=== PATIENT | male | born 1980 | race Caucasian/White ===

== ENCOUNTER 2025-07-19 16:53 | Emergency (ER) | payer OTHER, SELFPAY ==
[2025-07-19] VITALS (8 sets, daily range): BP systolic 125–161; BP diastolic 77–105; PULSE 78–93; RESP 16–19; TEMP 36.6–37; O2SAT 97–99; BMI 39.9
--- NOTE | 2025-07-19 17:28 | EKG12_ITS ---
Test Reason : CP Blood Pressure : */* mmHG Vent. Rate : 81 BPM Atrial Rate : 81 BPM P-R Int : 144 ms QRS Dur : 90 ms QT Int : 362 ms P-R-T Axes : 50 18 19 degrees QTcB Int : 420 ms Normal sinus rhythm Normal ECG Confirmed by SALAS RIZO, CHRISTINA ([id number]), supervising film or videotape editor JAN DEAL ([id number]) on 07/20/2025 10:47:42 AM Referred By: YUSUF Confirmed By: CHRISTINA MARINA MD
[2025-07-19 17:49] LABS: Hematocrit 45.9 % (40-54); Hemoglobin 16.4 g/dL (13.0-16.5); Immature Granulocytes Count 0.020 X10^3/uL (0.0-0.0); Mean Corp Hgb Conc 35.7 g/dL (32-36); Mean Corpuscular Volume 89.6 fL (80-94); Mean Platelet Vol. 11.2 fl (6.2-12.0); NRBC Flagged by Analyzer 0 % (0-5); Platelet Count 222 K/mm3 (150-450); RBC Distribution Width CV 11.9 % (11.6-14.6); RBC Distribution Width SD 38.9 fl (35.1-43.9); Red Blood Count 5.12 M/mm3 (4.6-6.2); White Blood Count 8.7 K/mm3 (4.4-11.0)
--- NOTE | 2025-07-19 17:50 | RAD_ITS ---
PROCEDURE: CHEST 1 VIEW (PORTABLE) 07/19/2025 REASON FOR EXAM: CHEST PAIN TECHNIQUE: Frontal view of the chest. COMPARISON: None. FINDINGS: Lungs/Pleura: Clear. No pneumothorax or sizable pleural effusion. Heart/Mediastinum: Borderline enlarged. Bones/Soft tissues: Degenerative changes of the spine. RAD/Chest 1 View (Portable) IMPRESSION: Borderline cardiomegaly. No acute pulmonary disease. Reading Location: [facility]
[2025-07-19 18:22] LABS: Anion Gap 14 (5-15); BUN 13 mg/dL (4-19); BUN/Creat Ratio 16.7 RATIO (10-20); Calcium,Total 10.0 mg/dL (7.6-11.0); Carbon Dioxide 22.2 mmol/L (21.0-32.0); Chloride 103 mmol/L (98-108); Estimated Creatinine Clearance 183.38 ml/min (50-250); Glucose 118 mg/dL (70-99); Potassium 4.0 mmol/L (3.3-5.1); Troponin T High Sensitivity < 6 ng/L (<=22)
[2025-07-19 20:28] LABS: Troponin T High Sens 2 HR < 6 ng/L (<=22)
--- NOTE | 2025-07-19 23:31 | ED.VIS.CHEST ---
HPI History of Present Illness Chief Complaint: Chest Pain Detail of Chief Complaint: Chest discomfort Informant: patient Onset/Context/Timing Onset: Today (Today did not resolve with antiacid.) and Yesterday (Yesterday resolved with antiacid) Activity at onset: rest Timing: Continuous Quality: Positive for Aching, Burning, Indigestion and Pressure Location: Left Parasternal and - (Subxiphoid) Current Severity: Moderate Maximum Severity: Severe Worsened By: Nothing Relieved By: Nothing Associated Symptoms: Positive for Nausea and Dyspnea; Negative for Vomiting, Diaphoresis, Cough, Fever, Lightheadedness, Acid Reflux or Palpitations Narrative Narrative: Patient is a 44-year-old male. He has history of GERD on Protonix and Pepcid. Takes 140 mg tablet of Protonix in the morning and either 20 or 40 mg Pepcid tablet at night. He presents because he got no relief with Maalox and his persistent pain. He has no history of hypertension. He has no history of diabetes or hypercholesterolemia. He has no known cardiac disease. Denies black or maroon-colored stool. He does have history of obstructive sleep apnea. Recent Illness/Hospitalization: No CVD Risk Factors: Negative for Hypertension, Diabetes, Hypercholesterolemia, Family History 1' </=55 or Smoking PE Risk Factors: Negative for Recent Travel/Surgery, Recent Immobilization, Prior DVT or PE, Cancer or OCP + Smoking + >/=35 TAD Risk Factors: Positive for Hypertension; Negative for Marfan's Syndrome or Family History [facility] Medical History Anxiety GERD (gastroesophageal reflux disease) Home Medications ?Medication ?Instructions ?Recorded ?Last Taken ?Type esomeprazole magnesium 40 mg 40 mg PO DAILY 11/11/14 Unknown History capsule,delayed release (Nexium) Allergy/AdvReac Type Severity Reaction Status Date / Time morphine AdvReac Vomiting Verified 07/19/25 16:55 Social History Smoking Status: Former smoker ROS ROS ED Constitutional Constitutional ED: Denies chills or fever(s) Eyes Eyes: Reports none ENT ENT ED: Denies ear pain or rhinorrhea Cardiovascular Cardiovascular: Reports as per HPI and chest pain Respiratory/Chest Respiratory/Chest: Reports dyspnea; Denies cough or dyspnea on exertion Gastrointestinal Gastrointestinal: Reports nausea; Denies abdominal pain, diarrhea or vomiting Musculoskeletal Musculoskeletal: Denies arthralgias, back pain or myalgias Integumentary Denies rash Endocrine Endocrinology: Denies cold intolerance or heat intolerance Hematologic/Lymphatic Hematologic/Lymphatic: Denies easy bleeding or easy bruising EXAM Physical Exam Const Vital Signs: 07/19/25 16:54 07/19/25 17:20 07/19/25 17:28 Temperature 98.6 F Temperature Source Oral Pulse Rate 93 Respiratory Rate 18 Respiratory Effort Normal Non-Labored Blood Pressure 161/88 H Blood Pressure Mean 112 Pulse Ox 98 Oxygen Delivery Method Room Air Room Air 07/19/25 17:45 07/19/25 19:00 07/19/25 20:00 Temperature Temperature Source Pulse Rate 84 88 81 Respiratory Rate 16 18 16 Respiratory Effort Blood Pressure 138/83 H 132/80 H 150/84 H Blood Pressure Mean 101 97 106 Pulse Ox 98 98 99 Oxygen Delivery Method Room Air Room Air Room Air 07/19/25 21:00 07/19/25 22:00 07/19/25 23:00 Temperature Temperature Source Pulse Rate 78 88 86 Respiratory Rate 17 19 H 18 Respiratory Effort Blood Pressure 126/77 H 125/78 H 128/105 H Blood Pressure Mean 93 93 112 Pulse Ox 98 97 97 Oxygen Delivery Method Room Air Room Air Room Air Positive well nourished and well developed Constitutional Narrative: BMI is 39.9 General Appearance ED: well developed and NAD; Negative for pallor HEENT Reports moist mucous membranes normocephalic and atraumatic Eyes PERRL and EOMs intact bilaterally General Eye ED: Negative for pale conjunctiva or scleral icterus Neck no lymphadenopathy, supple and no JVD Resp normal respiratory effort and clear to auscultation bilaterally Cardio regular rate, regular rhythm, S1 normal heart sound, S2 normal heart sound and no murmurs Peripheral Pulses: pulses 2+ throughout GI normal to inspection, nondistended, normoactive bowel sounds, soft to palpation, non-tender, non-distended and no masses; Negative for hepatosplenomegaly Back/Spine no CVA tenderness Extremity normal to inspection General Extremety ED: Negative for edema or pulses abnormal General Extremity: Negative for edema or pulses abnormal Neuro oriented x3 and CN's II-XII intact bilaterally Sensorium / Orientation: awake and alert Psych mental status grossly normal Skin no rashes or lesions noted and no wounds General Skin Exam: Negative for jaundice or pallor MDM MDM MDM Narrative Medical decision making narrative: Differential diagnosis esophagitis, gastritis, peptic ulcer disease, reflux, hiatal hernia, coronary disease, biliary disease. He denies any intolerance to greasy or fried foods. Workup included EKG, chest x-ray looking for hiatal hernia and appropriate blood work. Lab Data Attestation: I reviewed the patient's lab results. Lab results narrative: CBC is normal. Electrolyte panel is remarkable for slight elevation glucose 118. 1st and 2nd troponin are both less than 6. Patient was told this is most likely GERD. He is to follow-up with his doctor. Recommended taking antiacid when this happens again. Labs: Laboratory Results - last 24 hr 07/19/25 07/19/25 17:41 19:40 WBC 8.7 RBC 5.12 Hgb 16.4 Hct 45.9 MCV 89.6 MCH 32.0 MCHC 35.7 RDW Std Deviation 38.9 RDW Coeff of [place] 11.9 Plt Count 222 MPV 11.2 Immature Gran % (Auto) 0.200 Neut % (Auto) 55.9 Lymph % (Auto) 26.4 [place] % (Auto) 11.1 H Eos % (Auto) 5.4 H Baso % (Auto) 1.0 Absolute Neuts (auto) 4.9 Absolute Lymphs (auto) 2.30 Nucleated RBC % 0 Sodium 139 Potassium 4.0 Chloride 103 Carbon Dioxide 22.2 Anion Gap 14 BUN 13 Creatinine 0.79 Estim Creat Clear Calc 183.38 Est GFR (MDRD) Non-Af 112 BUN/Creatinine Ratio 16.7 Glucose 118 H Calcium 10.0 Troponin T High Sens < 6 Troponin T Hi Sens 2 Hr < 6 Radiography Chest X-Ray - ED: 2 View and Read by ED Physician (Cardiomegaly. There is no evidence of infiltrate, CHF or effusion. [place] is unremarkable. Osseous tractions are unremarkable.) Diagnostic Testing: Clinical Impression(s) from Imaging Studies Chest X-Ray 07/19/25 17:50 IMPRESSION: Borderline cardiomegaly. No acute pulmonary disease. Reading Location: [facility] Discharge Plan Triage Chief Complaint: Chest Pain ED Provider: Ulices Cornelius Dx/Rx/DC Orders Clinical Impression: Chest pain, non-cardiac, Chest pain due to GERD, Adult BMI 39.0-39.9 kg/sq m Instructions: ED GERD (Adult) Prescriptions: No Action esomeprazole magnesium [Nexium] 40 MG capsule 40 mg PO DAILY Primary Care Provider: Larissa Holland Referrals: Larissa Holland MD [Primary Care Provider, Internal Medicine] - As Needed Print Language: Bengali Disposition Disposition: Home, Self Care
== END 2025-07-19 23:46 | disposition home or self-care (01) ==
PROVIDERS: Emergency Provider Emergency Medicine; PCP Internal Medicine; Visit Provider Emergency Medicine
DX: K21.9 Gastro-esophageal reflux disease without esophagitis (principal); R07.89 Other chest pain; Z87.891 Personal history of nicotine dependence; Z79.899 Other long term (current) drug therapy; R06.00 Dyspnea, unspecified
CPT/HCPCS: 71045; 80048; 84484; 85025; 93005; 99284; A4216